=== PATIENT | female | born 1995 | race African-American/Black ===

== ENCOUNTER 2021-07-24 18:13 | Emergency (ER) | payer MEDICAID, SELFPAY ==
[2021-07-24 19:42] LABS: COVID-19 Test Negative (Negative); IDNOW Serial# 08D9AD1C
[2021-07-24 20:17] VITALS: BP 115/78; PULSE 120; RESP 16; TEMP 37.6; O2SAT 96; BMI 31.6
[2021-07-24 22:42] VITALS: PULSE 105; O2SAT 98
--- NOTE | 2021-07-24 22:42 | ED.GENADULT ---
HPI - General Adult General Chief complaint: Fever Stated complaint: fever,body aches coughing Time Seen by Provider: 07/24/21 22:10 Source: patient Mode of arrival: ambulatory Limitations: no limitations History of Present Illness HPI narrative: 26-year-old female presents to ED for cough, body aches, fever, and chills. Patient states she was exposed to a co-worker positive for COVID. Patient is not vaccinated. Patient denies any chest pain or shortness of breath Related Data Allergies Allergy/AdvReac Type Severity Reaction Status Date / Time latex Allergy Unknown Verified 07/24/21 20:17 Review of Systems Review of Systems: Yes all other systems are reviewed and are negative Constitutional: Constitutional: Reports as per HPI, Reports no additional constitutional complaints, Reports body ache(s), Reports chills, Reports fatigue and Reports fever(s) Eyes: Eyes: Reports as per HPI and Reports no additional eye complaints ENT: Reports system reviewed and no additional complaints, except as documented and Reports as per HPI Cardiovascular: Cardiovascular: Reports as per HPI, Reports no additional cardiovascular complaints, Denies chest pain and Denies dyspnea Respiratory: Respiratory: Reports as per HPI, Reports no additional respiratory complaints, Reports cough and Denies dyspnea Gastrointestinal: Gastrointestinal: Reports as per HPI and Reports no additional gastrointestinal complaints Genitourinary: Genitourinary: Reports no additional female genitourinary complaints and Reports as per HPI Musculoskeletal: Musculoskeletal: Reports no additional musculoskeletal complaints and Reports as per HPI Neurologic: Reports system reviewed and no additional complaints, except as documented and Reports as per HPI Psychiatric: Psychiatric: Reports no additional psychiatric complaints and Reports as per HPI Endocrine: Endocrine: Reports fatigue [facility] Past Medical History Medical History (Updated 07/24/21 @ 22:51 by PRISCILLA Owusu) No known health problems Social History Social History Advance Directives: No Advance Directives Information Provided: Yes Patient : No Physical Exam Vital Signs: Vital Signs: Last Vital Signs Temp 99.6 F 07/24/21 20:17 Pulse 105 H 07/24/21 22:42 Resp 16 07/24/21 20:17 BP 115/78 07/24/21 20:17 Pulse Ox 98 07/24/21 22:42 BMI result Body Mass Index 31.6 Const: General: cooperative, healthy appearing, comfortable, no acute distress, well developed, alert, awake and Physically active Orientation/consciousness: patient oriented x3 HENMT: Head: Yes normal to inspection, Yes No palpable skull fracture present, Yes normocephalic, Yes atraumatic and No abrasion Eyes: General: appearance normal, both eyes and all related structures Neck: Neck: Yes normal visual inspection, Yes full ROM, Yes no lymphadenopathy, Yes no meningeal signs, Yes trachea midline, Yes supple, No anterior neck swelling and No tender Chest: Chest palpation & inspection: normal inspection of the chest and normal palpation of entire chest wall Resp: Effort & Inspection: normal respiratory effort and able to speak in complete sentences Auscultation: clear to auscultation bilaterally Cardio: Jugular venous distension: no JVD Heart sounds: S1 normal heart sound present and S2 normal heart sound present GI: Inspection: Yes normal to inspection and No abdominal wall ecchymosis Palpation (GI): Soft to palpation, not firm, nontender, no guarding and not rigid : General: No CVA tenderness and Yes no CVA tenderness Back/Spine/Pelvis: Back: no CVA tenderness, No CVA tenderness and No back tenderness Skin: General skin exam: no rashes or lesions noted and elasticity normal Neuro: General: patient oriented x3, gait normal, no meningeal signs and CN's II-XI intact bilaterally Cranial nerves: Yes CN's II-XII intact bilaterally Extrem: General: Yes normal to inspection and Yes full ROM Psych: Appearance: grossly normal, well kempt and not disheveled Course Course Course Narrative: Patient tested for COVID. Reevaluation(s) Reevaluation #1: Patient is well-appearing. COVID test negative. Patient informed this may be a false negative and she will need to get retested in 5 days. Time: 22:40 Medical Decision Making [facility] Narrative Medical decision making narrative: URI. Viral SYndrome Lab Data Labs: Lab Results 07/24/21 Range/Units 19:13 COVID-19 (NAYE) Negative (Negative) COVID-19 Clin Com See Note Discharge Plan Discharge Clinical Impression: Acute viral syndrome, Upper respiratory infection Patient Disposition: Home, Self-Care Instructions: Upper Respiratory Infection (ED), Viral Syndrome (ED) Additional Instructions: You are negative for Cvovid 19 virus. This may be a false negative. You will need to get retested in 5 days. Return to the ED for any chest pain, shortness of breath, weakness, dizziness, or any other concerning symptoms. Please follow-up with primary care provider Stand Alone Forms: Work/School Release Interventions: ED Discharge Assessment Last Done: 07/24/21 22:57 Discharge Date/Time: 07/24/21 23:01 Print Language: Tajik
== END 2021-07-24 23:01 | disposition home or self-care (01) ==
PROVIDERS: Emergency Provider Emergency Medicine Emergency Medical Services
DX: B34.9 Viral infection, unspecified (principal); J06.9 Acute upper respiratory infection, unspecified; Z20.822 Contact with and (suspected) exposure to COVID-19; R50.9 Fever, unspecified
CPT/HCPCS: 36415; 87635; 99283